=== PATIENT | female | born 1935 | race Caucasian/White ===

== ENCOUNTER 2017-03-12 08:09 | Outpatient (CLI) | payer MEDICARE, OTHER ==
[2014-09-25 07:18] VITALS: BP 101/68
[2017-03-12 08:52] LABS: eGFR (African) > 60; eGFR (Non-African) > 60
== END 2017-03-12 08:10 ==
LOC: LAB 08:09
PROVIDERS: ATTEND Internal Medicine Cardiovascular Disease
DX: E78.5 Hyperlipidemia, unspecified (principal); I10 Essential (primary) hypertension; I25.10 Atherosclerotic heart disease of native coronary artery without angina pectoris; I65.23 Occlusion and stenosis of bilateral carotid arteries
CPT/HCPCS: 36415; 80053; 80061

== ENCOUNTER 2018-04-05 08:00 | Outpatient (CLI) | payer MEDICARE, OTHER ==
[2014-09-25 07:18] VITALS: BP 101/68
[2018-04-05 08:34] LABS: eGFR (African) > 60; eGFR (Non-African) > 60
== END 2018-04-05 08:02 ==
LOC: LAB 08:00
PROVIDERS: ATTEND Internal Medicine Cardiovascular Disease
DX: E78.5 Hyperlipidemia, unspecified (principal)
CPT/HCPCS: 36415; 80053; 80061

== ENCOUNTER 2018-07-26 13:40 | Outpatient (CLI) | payer MEDICARE, OTHER ==
[2014-09-25 07:18] VITALS: BP 101/68
--- NOTE | 2018-07-26 17:07 | Diagnostic Imaging Report ---
LEONOR TINAJERO [facility] [address] [facility].[address] [id number] Report Submission Date: Jul 26, 2018 2:51:40 PM CDT Patient Study Name: QUINTON JARAMILLO Date: Jul 26, 2018 1:56:16 PM CDT Modality Type: DX Gender: F Description: RIBS : 31 Institution: [facility] Physician: LEONOR TINAJERO Right ribs History: New onset rib pain Three views of the right ribs were obtained which demonstrate a new area of infiltrate at the mid right lung. Please see separate chest radiograph report for further detail. This abnormal region of infiltrate could represent a focus of pneumonia. However, on the lateral radiograph of the patient's chest radiograph, there does appear to be a spiculated masslike opacity. As indicated in the chest radiograph report, chest CT would be recommended. No pleural effusion is noted. No rib abnormalities are noted. Impression: No abnormalities of the right ribs are noted. However, there is a focal region of infiltrate at the mid right lung. Please see body of report for further discussion. As described in the chest radiograph report, chest CT would be recommended for further assessment. Electronically signed on Jul 26, 2018 2:51:40 PM CDT by: Denise ASHER
--- NOTE | 2018-07-26 17:08 | Diagnostic Imaging Report ---
LEONOR TINAJERO [facility] [address] [facility].[address] [address] Report Submission Date: Jul 26, 2018 2:49:01 PM CDT Patient Study Name: QUINTON JARAMILLO Date: Jul 26, 2018 1:50:53 PM CDT Modality Type: DX Gender: F Description: CHEST : 31 Institution: [facility] Physician: LEONOR TINAJERO PA and lateral chest History: Difficulty breathing. Pain in the right ribs PA and lateral chest dated July 26, 2018 is compared with March 22, 2013. Within the retrosternal region at the right upper lobe, there is a spiculated masslike opacity measuring approximately 3.8 x 3.3 cm in greatest dimension which has developed since March 22, 2013. In this high risk patient, this finding would be concerning for malignancy. Chest CT would be recommended. There is surrounding streaky mild infiltrate. Emphysematous findings of the lungs are present. There is no pleural effusion. The left lung is clear. Impression: Best noted on the lateral radiograph in the retrosternal region, there is a irregular masslike opacity when compared with 2012. In this high risk patient, this finding would be concerning for malignancy. Chest CT would be recommended for further assessment. There is mild surrounding infiltrate. COPD. Electronically signed on Jul 26, 2018 2:49:01 PM CDT by: Denise ASHER
== END 2018-07-26 14:25 ==
LOC: RAD 13:40
PROVIDERS: ATTEND Family Medicine
DX: J44.9 Chronic obstructive pulmonary disease, unspecified (principal)
CPT/HCPCS: 71046; 71100

== ENCOUNTER 2018-07-29 08:41 | Outpatient (CLI) | payer MEDICARE, OTHER ==
[2014-09-25 07:18] VITALS: BP 101/68
[2018-07-29 09:55] LABS: eGFR (Non-African) > 60
--- NOTE | 2018-07-30 11:20 | Diagnostic Imaging Report ---
LEONOR TINAJERO [facility] [address] [facility].[address] [address] Report Submission Date: Jul 29, 2018 6:52:34 PM CDT Patient Study Name: QUINTON JARAMILLO Date: Jul 29, 2018 10:09:21 AM CDT Modality Type: CT\SR Gender: F Description: CT CHEST W/ CONTRAST : 31 Institution: [facility] Physician: LEONOR TINAJERO CT of the chest with contrast CLINICAL HISTORY: Emphysema. Abnormal chest x-ray. Contrast administered: 96 mL of Omnipaque. TECHNIQUE: CT of the chest is performed in contiguous axial slices with sagittal and coronal reconstructions. FINDINGS: There are emphysematous changes throughout the lungs with dilated air spaces. There is a small right pleural effusion. There is consolidating infiltrate in the right upper lobe and minimal infiltrate in the right lower lobe in the superior segment. Changes appear to be inflammatory in origin rather than neoplastic. Follow-up to resolution is recommended. Central airways are patent. Vascular structures enhance normally. Vascular calcification is present in the thoracic aorta with extension into the origins of the great vessels and the coronary arteries. Hiatal hernia is demonstrated. IMPRESSION: Right pleural effusion with right upper and lower lobe infiltrates. Underlying emphysema. Recommend follow-up to resolution. Electronically signed on Jul 29, 2018 6:52:34 PM CDT by: Francis ASHER
== END 2018-07-29 08:50 ==
LOC: RAD 08:41
PROVIDERS: ATTEND Family Medicine
DX: R91.8 Other nonspecific abnormal finding of lung field (principal)
CPT/HCPCS: 36415; 71260; 80048; Q9967

== ENCOUNTER 2019-04-14 08:25 | Outpatient (CLI) | payer MEDICARE, OTHER ==
[2014-09-25 07:18] VITALS: BP 101/68
[2019-04-14 09:00] LABS: HDL 70 mg/dL (>40); eGFR (Non-African) > 60
== END 2019-04-14 08:27 ==
LOC: LAB 08:25
PROVIDERS: ATTEND Internal Medicine Cardiovascular Disease
DX: E78.5 Hyperlipidemia, unspecified (principal)
CPT/HCPCS: 36415; 80053; 80061